=== PATIENT | female | born 1970 | race American Indian/Alaskan Native ===

== ENCOUNTER 2018-12-14 11:37 | Emergency (ER) | payer MEDICAID ==
[2018-12-14 11:51] VITALS: BP 118/75
--- NOTE | 2018-12-14 11:59 | Emergency Department Report ---
Chief Complaint: Chest Pain Stated Complaint: CHEST PAIN/HEADACHE Time Seen by Provider: 12/14/18 11:55 - HPI History of Present Illness: cp for 2 weeks no nausea/ diaphoresis tx at urgent care for stomach ulcer with antibiotics ambulatory non toxic no sob no fever Dr Urban pcp pmh dm htn hpld obese previous smoker lmp last week mom aw dad pancreatic ca rx norvasc metformin statin psh appy 4 y ago mse completed - Exam Vital Signs: Vital Signs 12/14/18 11:50 Temperature 98.1 F Pulse Rate 79 Respiratory 16 Rate Blood Pressure 118/75 [Right] O2 Sat by Pulse 96 Oximetry MSE screening note: Focused history and physical exam performed. Due to findings the following was ordered: ED Disposition for MSE Condition: Stable
[2018-12-14] MEDS ORDERED: PEPCID PO ONE (12:28)
[2018-12-14 12:41] LABS: Basophils # (Auto) 0.1 K/mm3 (0.0-0.1); Basophils % (Auto) 1.1 % (0.0-1.8); Eosinophils # (Auto) 0.2 K/mm3 (0.0-0.4); Eosinophils % (Auto) 3.4 % (0.0-4.3); Hematocrit 31.6 % (30.3-42.9); Hemoglobin 10.2 gm/dl (10.1-14.3); Lymphocytes # (Auto) 1.7 K/mm3 (1.2-5.4); Lymphocytes % (Auto) 30.5 % (13.4-35.0); Mean Corpuscular HGB Conc 32 % (30-34); Monocytes # (Auto) 0.5 K/mm3 (0.0-0.8); Monocytes % (Auto) 8.7 % (0.0-7.3); Platelet Count 287 K/mm3 (140-440); Red Blood Count 4.68 M/mm3 (3.65-5.03); Red Cell Distribution Width 18.2 % (13.2-15.2)
[2018-12-14 12:44] LABS: Mean Corpuscular Volume 68 fl (79-97)
[2018-12-14 12:48] LABS: Alanine Aminotransferase 16 units/L (7-56); Albumin 4.1 g/dL (3.9-5); BUN/Creatinine Ratio 13; Blood Urea Nitrogen 13 mg/dL (7-17); Calcium 9.1 mg/dL (8.4-10.2); Hemolysis Index 2
--- NOTE | 2018-12-14 13:51 | Ultrasound Report ---
ULTRASOUND ABDOMEN LIMITED INDICATION: Epigastric pain. COMPARISON: None similar at this institution. FINDINGS: Right upper quadrant sonography suggests mild diffuse hepatic echogenic coarsening. Grossly preserved hepatic contours without definite focal suspicious lesions or biliary dilatation. No gallstones or pericholecystic fluid. Gallbladder wall thickness is 2 mm. Common bile duct is 2 mm. Imaged pancreas, nonaneurysmal abdominal aorta, IVC and the right kidney appear within normal limits. CONCLUSION: Fatty liver suspected without acute right upper quadrant sonographic abnormality, as described. Thank you for the opportunity to participate in this patient's care.
--- NOTE | 2018-12-14 15:19 | Emergency Department Report ---
ED Abdominal Pain HPI - General Chief Complaint: Chest Pain Stated Complaint: CHEST PAIN/HEADACHE Time Seen by Provider: 12/14/18 11:55 Source: patient Mode of arrival: Ambulatory Limitations: No Limitations - History of Present Illness Initial Comments: Patient is a 48-year-old Palestinian female who is complaining of some center chest and epigastric discomfort that has been present for approximately 2 months. Patient taking omeprazole was given by GI doctor without relief. Patient states it occurs every 2-3 days and is very dependent on the sheets large meals or not. He states that occasionally belching will help relieve the pain. Patient state s when she does get the pain lasts for 1-2 hours sharp in nature and radiates to her back. The worst pain is 8 out of 10 in severity and she had some pain earlier today which prompted her to come to the emergency department. Patient has a past medical history diabetes hypertension hypercholesterolemia. Patient's past surgical history of appendectomy. Patient has a history of heavy drinking up until several months ago. Severity scale (0 -10): 8 - Related Data Previous Rx's Medication Instructions Recorded Last Taken Type HYDROcodone/ACETAMINOPHEN 1 each PO Q6HR PRN #12 tablet 12/14/18 Unknown Rx [Hydrocodone-Acetamin 5-325 mg] Ondansetron [Zofran Odt] 4 mg PO Q8HR #10 tab.rapdis 12/14/18 Unknown Rx Allergies Allergy/AdvReac Type Severity Reaction Status Date / Time Penicillins Allergy Rash Verified 12/14/18 12:33 ED Review of Systems ROS: Stated complaint: CHEST PAIN/HEADACHE Other details as noted in HPI Comment: All other systems reviewed and negative ED Past Medical Hx - Past Medical History Previous Medical History?: Yes Hx Hypertension: Yes Hx Diabetes: Yes Additional medical history: HYPERCHOLESTEROLEMIA - Surgical History Past Surgical History?: Yes Hx Appendectomy: Yes - Social History Smoking Status: Former Smoker - Medications Home Medications: Home Medications Medication Instructions Recorded Confirmed Last Taken Type HYDROcodone/ACETAMINOPHEN 1 each PO Q6HR PRN #12 tablet 12/14/18 Unknown Rx [Hydrocodone-Acetamin 5-325 mg] Ondansetron [Zofran Odt] 4 mg PO Q8HR #10 tab.rapdis 12/14/18 Unknown Rx ED Physical Exam - General Limitations: No Limitations General appearance: alert, in no apparent distress - Head Head exam: Present: atraumatic, normocephalic - Eye Eye exam: Present: normal appearance, PERRL, EOMI - ENT ENT exam: Present: mucous membranes moist - Neck Neck exam: Present: normal inspection - Respiratory Respiratory exam: Present: normal lung sounds bilaterally. Absent: respiratory distress, wheezes, rales, rhonchi, stridor - Cardiovascular Cardiovascular Exam: Present: regular rate, normal rhythm, normal heart sounds. Absent: systolic murmur, diastolic murmur, rubs, gallop - GI/Abdominal GI/Abdominal exam: Present: soft, tenderness (epigastric), normal bowel sounds. Absent: distended, guarding, rebound, rigid - Extremities Exam Extremities exam: Present: normal inspection - Back Exam Back exam: Present: normal inspection - Neurological Exam Neurological exam: Present: alert, oriented X3 - Psychiatric Psychiatric exam: Present: normal affect, normal mood - Skin Skin exam: Present: warm, dry, intact, normal color. Absent: rash ED Course Vital Signs 12/14/18 11:50 Temperature 98.1 F Pulse Rate 79 Respiratory 16 Rate Blood Pressure 118/75 [Right] O2 Sat by Pulse 96 Oximetry ED Medical Decision Making - Lab Data Result diagrams: 12/14/18 12:12 12/14/18 12:12 Lab Results 12/14/18 12/14/18 Range/Units 12:12 12:12 WBC 5.6 (4.5-11.0) K/mm3 RBC 4.68 (3.65-5.03) M/mm3 Hgb 10.2 (10.1-14.3) gm/dl Hct 31.6 (30.3-42.9) % MCV 68 L (79-97) fl MCH 22 L (28-32) pg MCHC 32 (30-34) % RDW 18.2 H (13.2-15.2) % Plt Count 287 (140-440) K/mm3 Lymph % (Auto) 30.5 (13.4-35.0) % [place] % (Auto) 8.7 H (0.0-7.3) % Eos % (Auto) 3.4 (0.0-4.3) % Baso % (Auto) 1.1 (0.0-1.8) % Lymph # 1.7 (1.2-5.4) K/mm3 [place] # 0.5 (0.0-0.8) K/mm3 Eos # 0.2 (0.0-0.4) K/mm3 Baso # 0.1 (0.0-0.1) K/mm3 Seg Neutrophils % 56.3 (40.0-70.0) % Seg Neutrophils # 3.1 (1.8-7.7) K/mm3 Sodium 134 L (137-145) mmol/L Potassium 3.8 (3.6-5.0) mmol/L Chloride 97.0 L (98-107) mmol/L Carbon Dioxide 25 (22-30) mmol/L Anion Gap 16 mmol/L BUN 13 (7-17) mg/dL Creatinine 1.0 (0.7-1.2) mg/dL Estimated GFR 59 ml/min BUN/Creatinine Ratio 13 % Glucose 135 H (65-100) mg/dL Calcium 9.1 (8.4-10.2) mg/dL Total Bilirubin 0.20 (0.1-1.2) mg/dL AST 18 (5-40) units/L ALT 16 (7-56) units/L Alkaline Phosphatase 56 (35-129) units/L Troponin T < 0.010 (0.00-0.029) ng/mL Total Protein 7.3 (6.3-8.2) g/dL Albumin 4.1 (3.9-5) g/dL Albumin/Globulin Ratio 1.3 % Lipase 66 H (13-60) units/L - EKG Data -: EKG Interpreted by Fl EKG shows normal: sinus rhythm, axis, intervals, QRS complexes, ST-T waves Rate: normal - EKG Data Interpretation: normal EKG - Radiology Data [facility] [address] [place] [address] Ultrasound Report Signed Patient: GARRY HAQUE MR#: [id number] : 1970 Acct:[id number] Age/Sex: 48 / F ADM Date: 12/14/18 Loc: ED Attending Dr: Ordering Physician: ARIELLE MACEDO MD Date of Service: 12/14/18 Procedure(s): US abdomen limited Accession Number(s): [id number] cc: ARIELLE MACEDO MD ULTRASOUND ABDOMEN LIMITED INDICATION: Epigastric pain. COMPARISON: None similar at this institution. FINDINGS: Right upper quadrant sonography suggests mild diffuse hepatic echogenic coarsening. Grossly preserved hepatic contours without definite focal suspicious lesions or biliary dilatation. No gallstones or pericholecystic fluid. Gallbladder wall thickness is 2 mm. Common bile duct is 2 mm. Imaged pancreas, nonaneurysmal abdominal aorta, IVC and the right kidney appear within normal limits. CONCLUSION: Fatty liver suspected without acute right upper quadrant sonographic abnormality, as described. Thank you for the opportunity to participate in this patient's care. Transcribed By: RS Dictated By: AVEL PONCE MD Electronically Authenticated By: AVEL PONCE MD Signed Date/Time: 12/14/18 135 DD/ 134 TD/TT: 12/14/18 135 - Medical Decision Making Patient has a mild pain secondary to pancreatitis. Pancreatitis likely secondary to her diabetes, hypercholesterolemia, and heavy drinking. Patient's symptoms are mild and she has no active nausea vomiting at this time. Patient be referred back to her gastric neurologist for further management. Critical care attestation.: If time is entered above; I have spent that time in minutes in the direct care of this critically ill patient, excluding procedure time. ED Disposition Clinical Impression: Pancreatitis Qualifiers: Chronicity: chronic Pancreatitis type: unspecified pancreatitis type Qualified Code(s): K86.1 - Other chronic pancreatitis Disposition: - TO HOME OR SELFCARE Is pt being admited?: No Does the pt Need Aspirin: No Condition: Stable Instructions: Pancreatitis (ED) Time of Disposition: 15:20
== END 2018-12-14 15:28 | disposition home or self-care (01) ==
LOC: ED 11:37
DX: K85.90 Acute pancreatitis without necrosis or infection, unspecified (principal); I10 Essential (primary) hypertension; E11.9 Type 2 diabetes mellitus without complications; Z90.49 Acquired absence of other specified parts of digestive tract; Z88.0 Allergy status to penicillin; Z87.891 Personal history of nicotine dependence
CPT/HCPCS: 36415; 76705; 80053; 83690; 84484; 85025; 93005; 93010; 99284

== ENCOUNTER 2019-05-06 12:48 | Emergency (ER) | payer MEDICAID ==
[2019-05-06 12:57] VITALS: BP 143/84
--- NOTE | 2019-05-06 12:59 | Event Note ---
ED Screening Note ED Screening Note: weak and fatigue 1 day no chills no n/v/d no cp or sob blood pmh dm htn hpld neuropathy gerd anemia- iron low rx metformin pepcid norvasc simvistatin omeprazole cymbalta no cig/etoh/drugs sister w heart disease lmp 8-19 heavy day 1-3 This initial assessment/diagnostic orders/clinical plan/treatment(s) is/are subject to change based on patients health status, clinical progression and re- assessment by fellow clinical providers in the ED. Further treatment and workup at subsequent clinical providers discretion. Patient/guardian urged not to elope from the ED as their condition may be serious if not clinically assessed and managed. Initial orders include: blood glucose bc weak/dm
[2019-05-06 13:24] LABS: Hematocrit 33.3 % (30.3-42.9); Hemoglobin 10.3 gm/dl (10.1-14.3); Mean Corpuscular HGB Conc 31 % (30-34); Platelet Count 378 K/mm3 (140-440); Red Blood Count 5.31 M/mm3 (3.65-5.03); Red Cell Distribution Width 17.5 % (13.2-15.2)
[2019-05-06 13:33] LABS: Mean Corpuscular Volume 63 fl (79-97)
[2019-05-06 13:42] LABS: BUN/Creatinine Ratio 13; Blood Urea Nitrogen 9 mg/dL (7-17); Calcium 9.6 mg/dL (8.4-10.2); Hemolysis Index 3
--- NOTE | 2019-05-06 14:56 | Emergency Department Report ---
ED General Adult HPI - General Chief complaint: Weakness Stated complaint: WEAK/IRON LOW Time Seen by Provider: 05/06/19 12:55 Source: patient Mode of arrival: Ambulatory Limitations: No Limitations - History of Present Illness Initial comments: Patient is 48 years old female with history of iron deficiency anemia. Patient presented to the ER complaining of 4 day history of generalized weakness. Patient stated that she think her iron is low. Patient is nontoxic and in no acute distress. Patient denied any chest pain, shortness of breath, lower e xtremity swelling. Patient also denied any fever or chills. - Related Data Previous Rx's Medication Instructions Recorded Last Taken Type HYDROcodone/ACETAMINOPHEN 1 each PO Q6HR PRN #12 tablet 12/14/18 Unknown Rx [Hydrocodone-Acetamin 5-325 mg] Ondansetron [Zofran Odt] 4 mg PO Q8HR #10 tab.rapdis 12/14/18 Unknown Rx Allergies Allergy/AdvReac Type Severity Reaction Status Date / Time Penicillins Allergy Rash Verified 12/14/18 12:33 ED Review of Systems ROS: Stated complaint: WEAK/IRON LOW Other details as noted in HPI Comment: All other systems reviewed and negative Constitutional: denies: chills, fever Respiratory: denies: cough, orthopnea, shortness of breath, SOB with exertion, wheezing Cardiovascular: denies: chest pain, palpitations Gastrointestinal: denies: abdominal pain, nausea, vomiting, diarrhea, constipation, hematemesis, melena, hematochezia Neurological: weakness (generalized). denies: headache, numbness, paresthesias, confusion, abnormal gait ED Past Medical Hx - Past Medical History Hx Hypertension: Yes Hx Diabetes: Yes Additional medical history: HYPERCHOLESTEROLEMIA, Anemia,NEUROPATHY - Surgical History Hx Appendectomy: Yes - Social History Smoking Status: Never Smoker Substance Use Type: None - Medications Home Medications: Home Medications Medication Instructions Recorded Confirmed Last Taken Type HYDROcodone/ACETAMINOPHEN 1 each PO Q6HR PRN #12 tablet 12/14/18 Unknown Rx [Hydrocodone-Acetamin 5-325 mg] Ondansetron [Zofran Odt] 4 mg PO Q8HR #10 tab.rapdis 12/14/18 Unknown Rx ED Physical Exam - General Limitations: No Limitations General appearance: alert, in no apparent distress - Head Head exam: Present: atraumatic, normocephalic, normal inspection - Eye Eye exam: Present: normal appearance, PERRL - ENT ENT exam: Present: normal exam, normal orophraynx, mucous membranes moist - Neck Neck exam: Present: normal inspection, full ROM. Absent: tenderness, meningismus, lymphadenopathy, thyromegaly - Respiratory Respiratory exam: Present: normal lung sounds bilaterally - Cardiovascular Cardiovascular Exam: Present: regular rate, normal rhythm, normal heart sounds - GI/Abdominal GI/Abdominal exam: Present: soft, normal bowel sounds. Absent: distended, tenderness, guarding, rebound, rigid, organomegaly, mass, bruit, pulsatile mass, hernia - Extremities Exam Extremities exam: Present: normal inspection, full ROM, normal capillary refill. Absent: tenderness, pedal edema, joint swelling, calf tenderness - Back Exam Back exam: Present: normal inspection, full ROM. Absent: CVA tenderness (R), CVA tenderness (L) - Neurological Exam Neurological exam: Present: alert, oriented X3, CN II-XII intact, normal gait, reflexes normal - Psychiatric Psychiatric exam: Present: normal mood - Skin Skin exam: Present: warm, intact, normal color ED Course Vital Signs 05/06/19 12:55 Temperature 97.5 F L Pulse Rate 76 Respiratory 18 Rate Blood Pressure 143/84 O2 Sat by Pulse 99 Oximetry ED Medical Decision Making - Lab Data Result diagrams: 05/06/19 13:07 05/06/19 13:07 - Medical Decision Making Patient is 48 years old female with history of iron deficiency anemia. Patient presented to the ER complaining of 4 day history of generalized weakness. Patient stated that she think her iron is low. Patient is nontoxic and in no acute distress. Patient denied any chest pain, shortness of breath, lower extremity swelling. Patient also denied any fever or chills. Patient EKG is unremarkable. Labs reviewed that is unremarkable. Hemoglobin is 10.3. Thyroid panel is normal. Patient advised to follow-up with her primary care physician in the next 2-3 days and to return to the ER if symptoms are not improved. Critical care attestation.: If time is entered above; I have spent that time in minutes in the direct care of this critically ill patient, excluding procedure time. ED Disposition Clinical Impression: Generalized weakness Disposition: DC-01 TO HOME OR SELFCARE Is pt being admited?: No Condition: Stable Instructions: Weakness (ED) Referrals: JAIDEN HANNA [Other] - 3-5 Days
[2019-05-06 15:06] LABS: Bacteria,Urine 1+ /HPF (Negative); Bilirubin,Urine NEG (Negative); Blood,Urine SM (Negative); Color,Urine Yellow (Yellow); Mucus,Urine FEW /HPF; Protein,Urine <15 mg/dL mg/dL (Negative); Urobilinogen,Urine < 2.0 mg/dL (<2.0)
[2019-05-06 15:37] LABS: Free T4 (Free Thyroxine) 0.99 ng/dL (0.76-1.46)
== END 2019-05-06 16:11 | disposition home or self-care (01) ==
LOC: ED 12:48
DX: D50.9 Iron deficiency anemia, unspecified (principal); I10 Essential (primary) hypertension; E11.40 Type 2 diabetes mellitus with diabetic neuropathy, unspecified; E78.5 Hyperlipidemia, unspecified; Z88.0 Allergy status to penicillin
CPT/HCPCS: 36415; 80048; 81001; 82962; 84439; 84443; 84484; 85027; 93005; 93010; 99283

== ENCOUNTER 2020-08-02 08:22 | Emergency (ER) | payer MEDICAID ==
[2020-08-02] MEDS ORDERED: ASPIRIN 325 MG TAB PO ONE (08:41)
--- NOTE | 2020-08-02 09:20 | XRay Report ---
CHEST 2 VIEWS INDICATION / CLINICAL INFORMATION: Chest Pain. COMPARISON: None available. FINDINGS: SUPPORT DEVICES: None. HEART / MEDIASTINUM: No significant abnormality. LUNGS / PLEURA: No significant pulmonary or pleural abnormality. No pneumothorax. ADDITIONAL FINDINGS: No significant additional findings. IMPRESSION: 1. No acute findings. Signer Name: Nixon Grant MD Signed: 08/02/2020 9:16 AM Workstation Name: [id number]
[2020-08-02 09:48] LABS: Basophils % (Auto) 0.8 % (0.0-1.8); Eosinophils # (Auto) 0.3 K/mm3 (0.0-0.4); Eosinophils % (Auto) 4.2 % (0.0-4.3); Lymphocytes # (Auto) 1.9 K/mm3 (1.2-5.4); Lymphocytes % (Auto) 31.2 % (13.4-35.0); Mean Corpuscular HGB Conc 30 % (30-34); Monocytes # (Auto) 0.6 K/mm3 (0.0-0.8); Monocytes % (Auto) 9.1 % (0.0-7.3); Platelet Count 328 K/mm3 (140-440); Red Blood Count 5.12 M/mm3 (3.65-5.03); Red Cell Distribution Width 19.6 % (13.2-15.2)
[2020-08-02 09:54] LABS: Hematocrit 30.1 % (30.3-42.9); Mean Corpuscular Volume 59 fl (79-97)
[2020-08-02 10:02] LABS: Blood Urea Nitrogen 10 mg/dL (7-17); Calcium 8.8 mg/dL (8.4-10.2); Hemolysis Index 0
[2020-08-02 10:04] LABS: BUN/Creatinine Ratio 14
[2020-08-02 10:31] VITALS: BP 148/86
[2020-08-02] MEDS ORDERED: predniSONE 20 MG TAB PO ONE (10:31)
[2020-08-02 10:38] LABS: Alanine Aminotransferase 18 units/L (7-56); Albumin 4.1 g/dL (3.9-5)
[2020-08-02] MEDS ORDERED: predniSONE 20 MG TAB ONE (10:38)
[2020-08-02 10:39] LABS: Bilirubin,Direct < 0.2 mg/dL (0-0.2)
--- NOTE | 2020-08-02 10:55 | Emergency Department Report ---
ED Chest Pain HPI - General Chief Complaint: Neck Pain/Injury Stated Complaint: CHEST/MID BACK PAIN Time Seen by Provider: 08/02/20 10:15 Source: patient Mode of arrival: Ambulatory Limitations: No Limitations - History of Present Illness Initial Comments: This is a 49-year-old female who admits to stress at home. She states that she has symptoms reminiscent of her "pancreatitis". She states that she was seen for this before. Reviewing the previous medical records on 12/2018 the patient was seen for abdominal pain. She was found to have a normal CT except for fatty liver. Her lipase was 66. The emergency physician diagnosed her with "chronic pancreatitis". Today the patient presents stating that she "slept wrong". She has very vague dull and intermittent chest back neck and left shoulder discomfort. There is tenderness in her trapezius area to movement. She is pain-free at the time of my encounter. He states that she may have been slightly nauseated this morning but this was not persistent and she did not vomit. He does not complain of radiating pain. He does not complain of respiratory symptoms to include shortness of breath or cough. Patient states that she sees Dr. Urban a local primary care provider. She states that both her mother and father had heart attacks. She denies any family history of thromboembolic disease. She states she has never had a stress test nor has that been mentioned to her. She states she has never seen a director of cardiology. The patient denies any recent alcohol consumption. She states that her pancreatitis was related to alcohol excess. MD Complaint: chest pain -: Gradual Onset: during rest Pain Location: other (As above) Pain Radiation: none Severity: mild Quality: dull Consistency: intermittent, now resolved Improves With: nothing Worsens With: movement (Neck symptoms increased with movement) re: nausea. denies: vomting, diaphoresis Other Symptoms: denies: cough, fever, syncope Treatments Prior to Arrival: none Aspirin use within the Past 7 Days: (0) No - Related Data Previous Rx's Medication Instructions Recorded Last Taken Type HYDROcodone/ACETAMINOPHEN 1 each PO Q6HR PRN #12 tablet 12/14/18 Unknown Rx [Hydrocodone-Acetamin 5-325 mg] Ondansetron [Zofran Odt] 4 mg PO Q8HR #10 tab.rapdis 12/14/18 Unknown Rx Magnesium Oxide 400 mg PO DAILY #30 tablet 08/02/20 Unknown Rx traMADoL [Ultram] 50 mg PO Q6HR PRN #10 tablet 08/02/20 Unknown Rx Allergies Allergy/AdvReac Type Severity Reaction Status Date / Time Penicillins Allergy Rash Verified 12/14/18 12:33 Heart Score - HEART Score History: Slightly suspicious EKG: Normal Age: 45-65 Risk factors: 1-2 risk factors Troponin: < normal limit HEART Score: 2 - Critical Actions Critical Actions: 0-3 pts:0.9-1.7%risk of adverse cardiac event.Candidate for discharge ED Review of Systems ROS: Stated complaint: CHEST/MID BACK PAIN Other details as noted in HPI Constitutional: denies: chills, fever Eyes: denies: eye pain, eye discharge, vision change ENT: denies: ear pain, throat pain Respiratory: denies: cough, shortness of breath, wheezing Cardiovascular: as per HPI, chest pain. denies: palpitations Endocrine: no symptoms reported Gastrointestinal: nausea. denies: abdominal pain, diarrhea Genitourinary: denies: urgency, dysuria, discharge Musculoskeletal: denies: back pain, joint swelling, arthralgia Skin: denies: rash, lesions Neurological: denies: headache, weakness, paresthesias Psychiatric: denies: anxiety, depression Hematological/Lymphatic: denies: easy bleeding, easy bruising ED Past Medical Hx - Past Medical History Previous Medical History?: Yes Hx Hypertension: Yes Hx Diabetes: Yes Additional medical history: HYPERCHOLESTEROLEMIA, Anemia,NEUROPATHY, Pancreatitis - Surgical History Past Surgical History?: Yes Hx Appendectomy: Yes - Social History Smoking Status: Never Smoker Substance Use Type: Prescribed - Medications Home Medications: Home Medications Medication Instructions Recorded Confirmed Last Taken Type HYDROcodone/ACETAMINOPHEN 1 each PO Q6HR PRN #12 tablet 12/14/18 Unknown Rx [Hydrocodone-Acetamin 5-325 mg] Ondansetron [Zofran Odt] 4 mg PO Q8HR #10 tab.rapdis 12/14/18 Unknown Rx Magnesium Oxide 400 mg PO DAILY #30 tablet 08/02/20 Unknown Rx traMADoL [Ultram] 50 mg PO Q6HR PRN #10 tablet 08/02/20 Unknown Rx ED Physical Exam - General Limitations: No Limitations General appearance: alert, in no apparent distress - Head Head exam: Present: atraumatic, normocephalic - Eye Eye exam: Present: normal appearance. Absent: scleral icterus - ENT ENT exam: Present: mucous membranes moist - Neck Neck exam: Present: normal inspection. Absent: meningismus - Respiratory Respiratory exam: Present: normal lung sounds bilaterally. Absent: respiratory distress - Cardiovascular Cardiovascular Exam: Present: regular rate, normal rhythm. Absent: systolic murmur, diastolic murmur, rubs, gallop - GI/Abdominal GI/Abdominal exam: Present: soft, normal bowel sounds. Absent: distended, tenderness, guarding, rebound - Extremities Exam Extremities exam: Present: normal inspection. Absent: pedal edema, joint swelling, calf tenderness - Back Exam Back exam: Present: normal inspection - Neurological Exam Neurological exam: Present: alert, oriented X3, CN II-XII intact. Absent: motor sensory deficit - Psychiatric Psychiatric exam: Present: normal affect, normal mood - Skin Skin exam: Present: warm, dry, intact, normal color. Absent: rash ED Course Vital Signs 08/02/20 08/02/20 08/02/20 08:38 09:33 10:00 Temperature 98.3 F Pulse Rate 80 Respiratory 18 Rate Blood Pressure 162/94 140/83 148/86 O2 Sat by Pulse 99 98 98 Oximetry - Reevaluation(s) Reevaluation #1: Patient is asymptomatic. She does admit to heavy periods and noncompliance with her iron. She states that she will restart that. She does not complain of chest pain. She does not complain of nausea or abdominal pain either. Her chest pain is atypical and possibly musculoskeletal. I see no indication for hospitalization for ACS. Her anemia is chronic and related to DU B. She states she has an appointment at [place] to decide what surgical procedure she needs thereof. 08/02/20 12:25 ED Medical Decision Making - Lab Data Result diagrams: 08/02/20 09:12 08/02/20 09:12 Laboratory Results - last 24 hr 08/02/20 08/02/20 08/02/20 09:12 09:12 09:12 WBC 6.2 RBC 5.12 H Hgb 9.0 L Hct 30.1 L MCV 59 L MCH 18 L MCHC 30 RDW 19.6 H Plt Count 328 Lymph % (Auto) 31.2 [place] % (Auto) 9.1 H Eos % (Auto) 4.2 Baso % (Auto) 0.8 Lymph # (Auto) 1.9 [place] # (Auto) 0.6 Eos # (Auto) 0.3 Baso # (Auto) 0.0 Seg Neutrophils % 54.7 Seg Neutrophils # 3.4 Sodium 138 Potassium 4.1 Chloride 102.4 Carbon Dioxide 25 Anion Gap 15 BUN 10 Creatinine 0.7 Estimated GFR > 60 BUN/Creatinine Ratio 14 Glucose 131 H Calcium 8.8 Magnesium 1.40 L Total Bilirubin 0.20 Direct Bilirubin < 0.2 AST 23 ALT 18 Alkaline Phosphatase 74 Troponin T < 0.010 Total Protein 7.5 Albumin 4.1 Albumin/Globulin Ratio 1.2 Lipase 53 - EKG Data -: EKG Interpreted by Me EKG shows normal: sinus rhythm, axis, intervals, QRS complexes, ST-T waves Rate: normal - EKG Data Interpretation: normal EKG - Radiology Data Radiology results: report reviewed (Chest x-ray no acute process), image reviewed Critical care attestation.: If time is entered above; I have spent that time in minutes in the direct care of this critically ill patient, excluding procedure time. ED Disposition Clinical Impression: Chest pain, atypical, Chronic anemia, Hypomagnesemia Disposition: DC- TO HOME OR SELFCARE Is pt being admited?: No Does the pt Need Aspirin: No Condition: Stable Instructions: Chest Pain (ED), Nonspecific Chest Pain, Adult, Chest Wall Pain, Hypomagnesemia Additional Instructions: Restart your iron tablets. Ultram if needed for pain. Magnesium oxide for your low magnesium. Follow-up with your primary care physician. Going to give you the name of a director of cardiology as well considering your family history. Return to the emergency department any recurrent symptoms or acute change. Prescriptions: Magnesium Oxide 400 mg PO DAILY #30 tablet traMADoL [Ultram] 50 mg PO Q6HR PRN #10 tablet PRN Reason: Pain Referrals: PRIMARY CARE, [Primary Care Provider] - 3-5 Days PARISH HERRERA MD [Staff Physician] - 2-3 Days Time of Disposition: 12:30
[2020-08-03] MEDS ORDERED: MAGNESIUM OXIDE 400 MG TAB PO ONE (11:02)
== END 2020-08-02 12:45 | disposition home or self-care (01) ==
LOC: ED 08:22
DX: E83.42 Hypomagnesemia (principal); R07.89 Other chest pain; D64.89 Other specified anemias; I10 Essential (primary) hypertension; E11.9 Type 2 diabetes mellitus without complications; E78.00 Pure hypercholesterolemia, unspecified; Z90.49 Acquired absence of other specified parts of digestive tract; Z79.899 Other long term (current) drug therapy; Z88.0 Allergy status to penicillin
CPT/HCPCS: 36415; 71046; 80048; 80076; 83690; 83735; 84484; 85025; 93005; J7512

== ENCOUNTER 2020-08-21 16:30 | Emergency (ER) | payer MEDICAID ==
--- NOTE | 2020-08-21 17:20 | Event Note ---
ED Screening Note Date of service: 08/21/20 Time: 17:17 ED Screening Note: 49-year-old -[place] female presents to the emergency room complaining of right flank and lower back pain with urinary frequency. She does admit to have a history of diabetes but her blood sugars have been good. Her last A1c was 6.5. Last menstrual period was 08/01/2020. She denies any hematuria. This initial assessment/diagnostic orders/clinical plan/treatment(s) is/are subject to change based on patients health status, clinical progression and re- assessment by fellow clinical providers in the ED. Further treatment and workup at subsequent clinical providers discretion. Patient/guardian urged not to elope from the ED as their condition may be serious if not clinically assessed and managed. Initial orders include:
[2020-08-21] MEDS ORDERED: SODIUM CHLORIDE 0.9% 1000 ML 1,000 ML IV ONE (21:20)
[2020-08-21] MEDS ORDERED: KETOROLAC 30 MG/1 ML INJ IV ONE (21:20)
--- NOTE | 2020-08-21 21:30 | Emergency Department Report ---
ED Abdominal Pain HPI - General Chief Complaint: Back Pain/Injury Stated Complaint: FLANK/CHEST PAIN PUI?: No Time Seen by Provider: 08/21/20 21:14 Source: patient Mode of arrival: Ambulatory Limitations: No Limitations - History of Present Illness Initial Comments: Patient is a 49-year-old female that presents emergency room with complaints of bilateral flank pain and lower back pain and urinary frequency x3 days. Patient states that her symptoms are intermittent. Patient states right now is a 2 out of 10. Patient states the pain is a pressure and aching pain. Patient states the pain is better with rest. Patient dates the pain is worse with movement and palpation. Patient states that her bilateral flank pain radiates to the lower part of her ribs and to the epigastrium. Patient states that she is urinating frequently and a small amount. Patient denies fever and chills. Patient denies chest pain or shortness of breath. Patient denies nausea vomiting. Patient denies diarrhea. Patient states that she called her primary for an appointment and her primary care gave her an appointment on 08 September. Patient states that she saw her primary care 1 month ago. Patient states she is a diabetic and she is on Metformin. Patient dates her last A1c was 6.5. Patient states that she was recently started on losartan for kidney protection. Patient denies recent travel. Patient denies recent international travel. Patient denies exposure to the novel coronavirus. Patient denies sick contacts. Patient denies fever and chills. Patient denies cough. Patient denies diarrhea. Patient denies coming in contact with anybody with symptoms of the novel coronavirus. MD Complaint: abdominal pain, flank pain -: Sudden Location: L flank, R flank Radiation: LUQ, RUQ, epigastric Migration to: no migration Severity scale (0 -10): 2 Quality: aching Consistency: intermittent Improves With: rest Worsens With: movement - Related Data Previous Rx's Medication Instructions Recorded Last Taken Type HYDROcodone/ACETAMINOPHEN 1 each PO Q6HR PRN #12 tablet 12/14/18 Unknown Rx [Hydrocodone-Acetamin 5-325 mg] Ondansetron [Zofran Odt] 4 mg PO Q8HR #10 tab.rapdis 12/14/18 Unknown Rx Magnesium Oxide 400 mg PO DAILY #30 tablet 08/02/20 Unknown Rx Metaxalone [Skelaxin] 800 mg PO TID PRN #20 tablet 08/22/20 Unknown Rx traMADoL [Ultram 50 MG tab] 50 mg PO Q6HR PRN #10 tablet 08/22/20 Unknown Rx Allergies Allergy/AdvReac Type Severity Reaction Status Date / Time Penicillins Allergy Rash Verified 12/14/18 12:33 ED Review of Systems ROS: Stated complaint: FLANK/CHEST PAIN Other details as noted in HPI Constitutional: denies: chills, fever Eyes: denies: eye pain, eye discharge, vision change ENT: denies: ear pain, throat pain Respiratory: denies: cough, shortness of breath, wheezing Cardiovascular: denies: chest pain, palpitations Endocrine: no symptoms reported Gastrointestinal: as per HPI, abdominal pain. denies: nausea, diarrhea Genitourinary: denies: urgency, dysuria, discharge Musculoskeletal: denies: back pain, joint swelling, arthralgia Skin: denies: rash, lesions Neurological: denies: headache, weakness, paresthesias Psychiatric: denies: anxiety, depression Hematological/Lymphatic: denies: easy bleeding, easy bruising ED Past Medical Hx - Past Medical History Previous Medical History?: Yes Hx Hypertension: Yes Hx Diabetes: Yes Additional medical history: HYPERCHOLESTEROLEMIA, Anemia,NEUROPATHY, Pancreatitis - Surgical History Past Surgical History?: Yes Hx Appendectomy: Yes - Family History Family history: no significant - Social History Smoking Status: Never Smoker Substance Use Type: Prescribed - Medications Home Medications: Home Medications Medication Instructions Recorded Confirmed Last Taken Type HYDROcodone/ACETAMINOPHEN 1 each PO Q6HR PRN #12 tablet 12/14/18 Unknown Rx [Hydrocodone-Acetamin 5-325 mg] Ondansetron [Zofran Odt] 4 mg PO Q8HR #10 tab.rapdis 12/14/18 Unknown Rx Magnesium Oxide 400 mg PO DAILY #30 tablet 08/02/20 Unknown Rx Metaxalone [Skelaxin] 800 mg PO TID PRN #20 tablet 08/22/20 Unknown Rx traMADoL [Ultram 50 MG tab] 50 mg PO Q6HR PRN #10 tablet 08/22/20 Unknown Rx ED Physical Exam - General Limitations: No Limitations General appearance: alert, in no apparent distress - Head Head exam: Present: atraumatic, normocephalic - Eye Eye exam: Present: normal appearance - ENT ENT exam: Present: mucous membranes moist - Neck Neck exam: Present: normal inspection - Respiratory Respiratory exam: Present: normal lung sounds bilaterally. Absent: respiratory distress - Cardiovascular Cardiovascular Exam: Present: regular rate, normal rhythm. Absent: systolic murmur, diastolic murmur, rubs, gallop - GI/Abdominal GI/Abdominal exam: Present: soft, tenderness (Bilateral flank tenderness and daksha ateral upper quadrant tenderness.), normal bowel sounds - Extremities Exam Extremities exam: Present: normal inspection - Back Exam Back exam: Present: normal inspection - Neurological Exam Neurological exam: Present: alert, oriented X3 - Psychiatric Psychiatric exam: Present: normal affect, normal mood - Skin Skin exam: Present: warm, dry, intact, normal color. Absent: rash ED Course Vital Signs 08/21/20 17:09 Temperature 98.6 F Pulse Rate 83 Respiratory 16 Rate Blood Pressure 133/75 [Right] O2 Sat by Pulse 100 Oximetry - Reevaluation(s) Reevaluation #1: I discussed all results and clinical findings with patient. I discussed plan of care with patient. Patient agrees with plan of care. Patient is stable for discharge. Patient will be discharged home. Patient given discharge instru ctions. Patient voiced understanding of discharge instructions. 08/22/20 00:18 ED Medical Decision Making - Lab Data Result diagrams: 08/21/20 21:31 08/21/20 21:31 - Radiology Data Radiology results: report reviewed CT ABDOMEN AND PELVIS WITH AND WITHOUT CONTRAST INDICATION: Abdominal pain. Bilateral flank pain. TECHNICAL: Multiple axial CT images of the abdomen and pelvis were acquired without intravenous contrast. Sagittal and coronal reformats were obtained. All CTs at this facility utilize dose reduction techniques including automated exposure control, iterative saman nstruction and weight based dosing when appropriate to reduce patient radiation dose to as low as r easonable achievable. COMPARISON: None. FINDINGS: Limited imaging of the bilateral lung bases demonstrates no acute abnormality. ABDOMEN: LIVER: No significant abnormality. GALLBLADDER: No significant abnormality. BILE DUCTS: No significant abnormality. PANCREAS: No significant abnormality. SPLEEN: No significant abnormality. ADRENALS: No significant abnormality. RIGHT KIDNEY / URETER: No significant abnormality. LEFT KIDNEY / URETER: No significant abnormality. STOMACH / SMALL BOWEL: No significant abnormality. COLON: No significant abnormality. APPENDIX: The appendix is not visualized. There may have been previous appendectomy. PERITONEUM: No free fluid. No free air. No fluid collection. AORTA / ARTERIES: No significant abnormality. IVC / VEINS: No significant abnormality. Pelvis: URINARY BLADDER: No significant abnormality. REPRODUCTIVE ORGANS: The uterus is markedly enlarged and diffusely heterogeneous measuring approximately 11.6 x 12.5 x 9.9 cm. ADDITIONAL FINDINGS: No additional acute abnormality. SKELETAL SYSTEM: No significant abnormality. IMPRESSION: 1. No evidence of acute inflammatory or obstructive process within the abdomen or pelvis. 2. Enlarged heterogeneous uterus most likely secondary to the presence of multiple fibroids. - Medical Decision Making Patient is a 49-year-old female that presents emergency room with complaints of bilateral flank pain and urinary frequency. Patient's bilateral flank. Radiates to the bilateral upper quadrants and epigastrium. Patient stated she has recently started working out. Patient had a CT scan of the abdomen which was negative for acute findings. Patient's had labs done which were unremarkable. Patient's UA was negative for an infection or abnormalities. Patient stable for discharge. Patient discharged home. - Differential Diagnosis Musculoskeletal, flank pain, kidney stone, UTI, gallbladder Critical care attestation.: If time is entered above; I have spent that time in minutes in the direct care of this critically ill patient, excluding procedure time. ED Disposition Clinical Impression: Bilateral flank pain, Thoracic sprain, Urinary frequency Abdominal pain Qualifiers: Abdominal location: upper abdomen, unspecified Qualified Code(s): R10.10 - Upper abdominal pain, unspecified Back pain Qualifiers: Back pain location: low back pain Chronicity: acute Back pain laterality: bilateral Sciatica presence: without sciatica Qualified Code(s): M54.5 - Low back pain Low back strain Qualifiers: Encounter type: initial encounter Qualified Code(s): S39.012A - Strain of muscle, fascia and tendon of lower back, initial encounter Disposition: - TO HOME OR SELFCARE Is pt being admited?: No Does the pt Need Aspirin: No Condition: Stable Instructions: Lumbar Sprain, Acute Back Pain, Adult, Thoracic Strain, Muscle Strain, [id number], Thoracic Strain, [id number], Flank Pain, Adult, [id number] Additional Instructions: Patient to follow-up with primary care in 2 to 3 days. Patient to follow-up with orthopedist in 2 to 3 days. Patient to follow-up with urologist in 2 to 3 days. Patient to rest. Patient to increase water. Patient to avoid strenuous exercise or heavy lifting until cleared by orthopedist. Patient to take Tylenol or ibuprofen as needed for pain. Patient to take meds as directed. Patient to return to the ER if condition worsens, changes or new symptoms arise. Prescriptions: Metaxalone [Skelaxin] 800 mg PO TID PRN #20 tablet PRN Reason: Muscle Spasm traMADoL [Ultram 50 MG tab] 50 mg PO Q6HR PRN #10 tablet PRN Reason: Pain Referrals: PRIMARY CARE, [Primary Care Provider] - 2-3 Days ANAI DAVIES MD [Staff Physician] - 2-3 Days Time of Disposition: 00:02
[2020-08-21 22:03] LABS: Basophils # (Auto) 0.1 K/mm3 (0.0-0.1); Basophils % (Auto) 0.9 % (0.0-1.8); Eosinophils # (Auto) 0.3 K/mm3 (0.0-0.4); Eosinophils % (Auto) 3.3 % (0.0-4.3); Lymphocytes # (Auto) 2.7 K/mm3 (1.2-5.4); Lymphocytes % (Auto) 30.3 % (13.4-35.0); Mean Corpuscular HGB Conc 30 % (30-34); Monocytes # (Auto) 0.6 K/mm3 (0.0-0.8); Monocytes % (Auto) 6.8 % (0.0-7.3); Platelet Count 378 K/mm3 (140-440); Red Blood Count 5.58 M/mm3 (3.65-5.03)
[2020-08-21 22:04] LABS: Hemoglobin 10.1 gm/dl (10.1-14.3); Mean Corpuscular Volume 61 fl (79-97); Red Cell Distribution Width 21.6 % (13.2-15.2)
[2020-08-21 22:10] LABS: Alanine Aminotransferase 18 units/L (7-56); Albumin 4.6 g/dL (3.9-5); BUN/Creatinine Ratio 11; Blood Urea Nitrogen 9 mg/dL (7-17); Calcium 9.6 mg/dL (8.4-10.2); Hemolysis Index 28
[2020-08-21 22:26] LABS: Bilirubin,Direct < 0.2 mg/dL (0-0.2)
--- NOTE | 2020-08-21 23:29 | Cat Scan Report ---
CT ABDOMEN AND PELVIS WITH AND WITHOUT CONTRAST INDICATION: Abdominal pain. Bilateral flank pain. TECHNICAL: Multiple axial CT images of the abdomen and pelvis were acquired without intravenous contr ast. Sagittal and coronal reformats were obtained. All CTs at this facility utilize dose reduction techniques including automated exposure control, iterative reconstruction and weight based dosing whe n appropriate to reduce patient radiation dose to as low as reasonable achievable. COMPARISON: None. FINDINGS: Limited imaging of the bilateral lung bases demonstrates no acute abnormality. ABDOMEN: LIVER: No significant abnormality. GALLBLADDER: No significant abnormality. BILE DUCTS: No significant abnormality. PANCREAS: No significant abnormality. SPLEEN: No significant abnormality. ADRENALS: No significant abnormality. RIGHT KIDNEY / URETER: No significant abnormality. LEFT KIDNEY / URETER: No significant abnormality. STOMACH / SMALL BOWEL: No significant abnormality. COLON: No significant abnormality. APPENDIX: The appendix is not visualized. There may have been previous appendectomy. PERITONEUM: No free fluid. No free air. No fluid collection. AORTA / ARTERIES: No significant abnormality. IVC / VEINS: No significant abnormality. Pelvis: URINARY BLADDER: No significant abnormality. REPRODUCTIVE ORGANS: The uterus is markedly enlarged and diffusely heterogeneous measuring approximat talisha 11.6 x 12.5 x 9.9 cm. ADDITIONAL FINDINGS: No additional acute abnormality. SKELETAL SYSTEM: No significant abnormality. IMPRESSION: 1. No evidence of acute inflammatory or obstructive process within the abdomen or pelvis. 2. Enlarged heterogeneous uterus most likely secondary to the presence of multiple fibroids. Signer Name: Mary Ziegler MD Signed: 08/21/2020 11:24 PM Workstation Name: [id number]
[2020-08-21 23:48] LABS: Bacteria,Urine 1+ /HPF (Negative); Bilirubin,Urine NEG (Negative); Blood,Urine NEG (Negative); Color,Urine Yellow (Yellow); Mucus,Urine FEW /HPF; Protein,Urine <15 mg/dL mg/dL (Negative); Urobilinogen,Urine < 2.0 mg/dL (<2.0)
[2020-08-22 03:25] VITALS: BP 130/80
== END 2020-08-22 00:24 | disposition home or self-care (01) ==
LOC: ED 16:30
DX: S39.012A Strain of muscle, fascia and tendon of lower back, initial encounter (principal); S23.3XXA Sprain of ligaments of thoracic spine, initial encounter; R35.0 Frequency of micturition; R10.31 Right lower quadrant pain; I10 Essential (primary) hypertension; E11.9 Type 2 diabetes mellitus without complications; Z90.49 Acquired absence of other specified parts of digestive tract; Z79.899 Other long term (current) drug therapy; Z88.0 Allergy status to penicillin; X58.XXXA Exposure to other specified factors, initial encounter; Y93.89 Activity, other specified; Y92.89 Other specified places as the place of occurrence of the external cause; Y99.8 Other external cause status
CPT/HCPCS: 36415; 74178; 80048; 80076; 81001; 83690; 84703; 85025; 96361; 96374; 99284; J1885; J7030; Q9967

== ENCOUNTER 2021-07-24 16:49 | Emergency (ER) | payer BC, MEDICAID ==
[2021-07-24 17:00] VITALS: BP 147/67
--- NOTE | 2021-07-24 18:18 | Emergency Department Report ---
ED Dizziness HPI - General Chief Complaint: Dizziness Stated Complaint: DIZZINESS, PAIN AROUND BACK Time Seen by Provider: 07/24/21 18:04 Source: patient Mode of arrival: Ambulatory Limitations: No Limitations - History of Present Illness Initial Comments: 50-year-old female, history of hypertension, diabetes, vertigo, hypercholesterolemia, GERD, presents to ED with complaint of dizziness. Patient ports onset 2 weeks ago. States it feels like the room is spinning. She also reports a frontal headache that is associated with it. She denies any fever, nausea, vomiting. Patient states that she has been taking meclizine intermittently, but not daily. States the vertigo has been off and on over the last 2 weeks. States the meclizine seems to help. Additionally, patient is reporting some epigastric chest pain that radiates around to the back. She reports that this is also been constant for 2 weeks. She reports history of pancreatitis in the past and is unsure if this pain that she is experiencing is possibly due to pancreatitis. Patient states she is alcohol occasionally. She denies any tobacco use. MD Complaint: dizziness -: week(s) (2) Timing: awoke with symptoms Description: "room spinning" History of Same: Yes History of Trauma: No Severity: moderate Improves With: remaining still Worsens With: movement Associated Symptoms: chest pain. denies: cough, fever/chills, shortness of breath, syncope, weakness - Related Data Previous Rx's Medication Instructions Recorded Last Taken Type HYDROcodone/ACETAMINOPHEN 1 each PO Q6HR PRN #12 tablet 12/14/18 Unknown Rx [Hydrocodone-Acetamin 5-325 mg] Ondansetron [Zofran Odt] 4 mg PO Q8HR #10 tab.rapdis 12/14/18 Unknown Rx Magnesium Oxide 400 mg PO DAILY #30 tablet 08/02/20 Unknown Rx Metaxalone [Skelaxin] 800 mg PO TID PRN #20 tablet 08/22/20 Unknown Rx traMADoL [Ultram 50 MG tab] 50 mg PO Q6HR PRN #10 tablet 08/22/20 Unknown Rx Butalb/Acetamin/Caff 50-325-40 1 tab PO Q6HR PRN #10 tab 07/24/21 Unknown Rx [Fioricet] Meclizine [Antivert] 25 mg PO TID PRN #20 tablet 07/24/21 Unknown Rx Naproxen [Naprosyn] 500 mg PO BID #20 tablet 07/24/21 Unknown Rx Allergies Allergy/AdvReac Type Severity Reaction Status Date / Time Penicillins Allergy Rash Verified 12/14/18 12:33 ED Review of Systems ROS: Stated complaint: DIZZINESS, PAIN AROUND BACK Other details as noted in HPI Comment: All other systems reviewed and negative Constitutional: denies: chills, fever Respiratory: denies: cough, shortness of breath Cardiovascular: chest pain Gastrointestinal: abdominal pain. denies: nausea, vomiting Musculoskeletal: back pain, other (Denies leg pain or swelling) Neurological: headache, vertigo. denies: weakness, numbness ED Past Medical Hx - Past Medical History Hx Hypertension: Yes Hx Diabetes: Yes Additional medical history: HYPERCHOLESTEROLEMIA, Anemia,NEUROPATHY, Pancreatitis - Surgical History Hx Appendectomy: Yes - Social History Smoking Status: Never Smoker Substance Use Type: Prescribed - Medications Home Medications: Home Medications Medication Instructions Recorded Confirmed Last Taken Type HYDROcodone/ACETAMINOPHEN 1 each PO Q6HR PRN #12 tablet 12/14/18 Unknown Rx [Hydrocodone-Acetamin 5-325 mg] Ondansetron [Zofran Odt] 4 mg PO Q8HR #10 tab.rapdis 12/14/18 Unknown Rx Magnesium Oxide 400 mg PO DAILY #30 tablet 08/02/20 Unknown Rx Metaxalone [Skelaxin] 800 mg PO TID PRN #20 tablet 08/22/20 Unknown Rx traMADoL [Ultram 50 MG tab] 50 mg PO Q6HR PRN #10 tablet 08/22/20 Unknown Rx Butalb/Acetamin/Caff 50-325-40 1 tab PO Q6HR PRN #10 tab 07/24/21 Unknown Rx [Fioricet] Meclizine [Antivert] 25 mg PO TID PRN #20 tablet 07/24/21 Unknown Rx Naproxen [Naprosyn] 500 mg PO BID #20 tablet 07/24/21 Unknown Rx ED Physical Exam - General Limitations: No Limitations General appearance: alert, in no apparent distress - Head Head exam: Present: atraumatic, normocephalic - Eye Eye exam: Present: normal appearance, PERRL, EOMI. Absent: nystagmus - ENT ENT exam: Present: mucous membranes moist - Neck Neck exam: Present: normal inspection, full ROM - Respiratory Respiratory exam: Present: normal lung sounds bilaterally. Absent: respiratory distress - Cardiovascular Cardiovascular Exam: Present: regular rate, normal rhythm - GI/Abdominal GI/Abdominal exam: Present: soft. Absent: distended, tenderness - Extremities Exam Extremities exam: Present: normal inspection - Back Exam Back exam: Present: paraspinal tenderness (Midthoracic area) - Neurological Exam Neurological exam: Present: alert, oriented X3, CN II-XII intact. Absent: motor sensory deficit - Psychiatric Psychiatric exam: Present: normal affect, normal mood - Skin Skin exam: Present: warm, dry, intact, normal color ED Course Vital Signs 07/24/21 16:59 Temperature 97.8 F Pulse Rate 83 Respiratory 16 Rate Blood Pressure 147/67 [Right] O2 Sat by Pulse 97 Oximetry ED Medical Decision Making - Lab Data Result diagrams: 07/24/21 18:10 07/24/21 18:10 - EKG Data -: EKG Interpreted by Hi EKG shows normal: sinus rhythm, axis, intervals, QRS complexes, ST-T waves Rate: normal - EKG Data Interpretation: no acute changes - Radiology Data Radiology results: report reviewed, image reviewed - Medical Decision Making 50-year-old female presents to ED with 2-week history of vertigo and chest pain. Patient states her vertigo feels the same as it did with previous episodes. Patient reports improvement in symptoms with meclizine, however patient not taking her meclizine daily. Patient states when she had vertigo previously it was also accompanied with a headache at that time as well. Patient also reporting some constant epigastric chest pain radiating to the back x2 weeks. EKG is unremarkable, troponin is negative. Chest x-ray is normal. Vital signs are normal. Patient will be discharged at this time. Outpatient follow-up advised, return precautions given. - Differential Diagnosis Vertigo, intracranial abnormality, pancreatitis, ACS, GERD Critical care attestation.: If time is entered above; I have spent that time in minutes in the direct care of this critically ill patient, excluding procedure time. ED Disposition Clinical Impression: Benign positional vertigo, Chest pain Disposition: HOME / SELF CARE / HOMELESS Is pt being admited?: No Condition: Stable Instructions: Vertigo, [id number], Nonspecific Chest Pain, Adult Prescriptions: Meclizine [Antivert] 25 mg PO TID PRN #20 tablet PRN Reason: Vertigo Butalb/Acetamin/Caff 50-325-40 [Fioricet] 1 tab PO Q6HR PRN #10 tab PRN Reason: Headache Naproxen [Naprosyn] 500 mg PO BID #20 tablet Referrals: PRIMARY CARE, [Primary Care Provider] - 3-5 Days [facility] [Provider Group] - 3-5 Days Time of Disposition: 19:44
[2021-07-24 18:25] LABS: Basophils # (Auto) 0.1 K/mm3 (0.0-0.1); Basophils % (Auto) 0.8 % (0.0-1.8); Eosinophils # (Auto) 0.1 K/mm3 (0.0-0.4); Lymphocytes # (Auto) 1.7 K/mm3 (1.2-5.4); Lymphocytes % (Auto) 23.6 % (13.4-35.0); Mean Corpuscular HGB Conc 30 % (30-34); Monocytes # (Auto) 0.4 K/mm3 (0.0-0.8); Monocytes % (Auto) 5.8 % (0.0-7.3); Platelet Count 385 K/mm3 (140-440); Red Blood Count 5.18 M/mm3 (3.65-5.03); Red Cell Distribution Width 18.8 % (13.2-15.2)
[2021-07-24 18:26] LABS: Hematocrit 31.5 % (30.3-42.9); Hemoglobin 9.5 gm/dl (10.1-14.3); Mean Corpuscular Volume 61 fl (79-97)
[2021-07-24 18:34] LABS: INR 0.88 (0.87-1.13)
[2021-07-24 18:35] LABS: Partial Thromboplastin Time 24.1 Sec. (24.2-36.6)
--- NOTE | 2021-07-24 18:35 | XRay Report ---
XR chest routine 2V INDICATION / CLINICAL INFORMATION: chest pain. COMPARISON: 07/13/2020 FINDINGS: SUPPORT DEVICES: None. HEART /PULMONARY VASCULATURE: No significant abnormality. LUNGS / PLEURA: No significant pulmonary or pleural abnormality. No pneumothorax. ADDITIONAL FINDINGS: No significant additional findings. IMPRESSION: 1. No acute findings. Signer Name: Kun Vogt MD Signed: 07/24/2021 6:30 PM Workstation Name: [id number]
[2021-07-24 18:59] LABS: Alanine Aminotransferase 15 units/L (7-56); Albumin 4.5 g/dL (3.9-5); Blood Urea Nitrogen 8 mg/dL (7-17); Calcium 8.6 mg/dL (8.4-10.2); Hemolysis Index 4
[2021-07-24 19:03] LABS: BUN/Creatinine Ratio 11
[2021-07-24] MEDS ORDERED: BUTALB/ACETAMINOPHEN/CAFFEINE TAB PO ONE (19:09)
[2021-07-24] MEDS ORDERED: MECLIZINE 25 MG TAB PO ONE (19:10)
--- NOTE | 2021-07-24 19:22 | Cat Scan Report ---
. 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 TECHNIQUE: Routine CT head without contrast. All CT scans at this location are performed using CT dos e reduction for ALARA by means of automated exposure control. COMPARISON: None. FINDINGS: BRAIN / INTRACRANIAL CONTENTS: No acute hemorrhage, mass effect, midline shift, hydrocephalus, or acu te, large territorial infarct. No signs of significant atrophy or chronic infarct. No significant whi te matter abnormality seen. CRANIOCERVICAL JUNCTION: No significant abnormality. ORBITS: No significant abnormality of visualized orbits. SINUSES / MASTOIDS: Visualized paranasal sinuses and mastoid air cells are essentially clear. ADDITIONAL FINDINGS: None. IMPRESSION: 1. No focal mass, hemorrhage, hydrocephalus, or acute, large territorial infarct. Signer Name: Nuno Gibson MD, III Signed: 07/24/2021 7:18 PM Workstation Name: [email or web address]
--- NOTE | 2021-07-27 11:19 | Electrocardiograph Report ---
[facility] Test Date: 2021-07-24 Test Time: 18:30:04 Pat Name: GARRY HAQUE Department: Room: Gender: F Manager Facility: [facility] : 1970 Requested By: MAR ARREOLA Order Number: [id number] Reading MD: Reba Cedeno Measurements Intervals [place] Rate: 74 P: 61 WI: 165 QRS: 52 QRSD: 68 T: 15 QT: 426 QTc: 474 Interpretive Statements Sinus rhythm Probable left atrial enlargement Compared to ECG 07/24/2021 17:23:20 No significant changes Electronically Signed On 07-27-2021 11:19:23 EST by Reba Cedeno
== END 2021-07-24 20:02 | disposition home or self-care (01) ==
LOC: ED 16:49
DX: H81.10 Benign paroxysmal vertigo, unspecified ear (principal); R07.9 Chest pain, unspecified; M54.9 Dorsalgia, unspecified; I10 Essential (primary) hypertension; E11.8 Type 2 diabetes mellitus with unspecified complications; E78.00 Pure hypercholesterolemia, unspecified; G62.9 Polyneuropathy, unspecified; Z98.890 Other specified postprocedural states; Z88.0 Allergy status to penicillin
CPT/HCPCS: 36415; 70450; 71046; 80053; 83690; 84484; 84703; 85025; 85379; 85610; 85730; 93005; 99284

== ENCOUNTER 2021-11-12 11:00 | Outpatient (CLI) | payer MEDICAID | END 2021-11-12 11:01 | disposition home or self-care (01) | LOC: SLR 11:00 | PROVIDERS: ATTEND Surgery | DX: G47.33 Obstructive sleep apnea (adult) (pediatric) (principal); R40.0 Somnolence; E66.9 Obesity, unspecified | CPT/HCPCS: G0399 ==

== ENCOUNTER 2022-05-09 07:14 | Observation (INO) | payer MEDICAID ==
--- NOTE | 2022-05-04 12:04 | Anesthesia Consultation ---
Anesthesia Consult and Med Hx Date of service: 05/09/22 - Airway Anesthetic Teeth Evaluation: Good ROM Head & Neck: Adequate Mental/Hyoid Distance: Adequate Mallampati Class: Class II Intubation Access Assessment: Good - Pulmonary Exam CTA: Yes - Cardiac Exam Cardiac Exam: No Murmur - Pre-Operative Health Status ASA Pre-Surgery Classification: ASA3 - Pulmonary Hx Smoking: Yes (STOPPED 1 YEAR AGO. STOPPED VAPING 1 MO. AGO.) Hx Asthma: No Hx Pneumonia: No Hx Sleep Apnea: Yes (Dx GERSON) - Cardiovascular System Hx Hypertension: Yes - Central Nervous System Hx Psychiatric Problems: Yes - Endocrine Hx Non-Insulin Dependent Diabetes: Yes - Hematic Hx Anemia: Yes Hx Sickle Cell Disease: No - Other Systems Hx Alcohol Use: No Hx Substance Use: No Hx Cancer: No Hx Obesity: Yes
[2022-05-04 12:12] LABS: Alanine Aminotransferase 32 units/L (7-56); Albumin 4.5 g/dL (3.9-5); BUN/Creatinine Ratio 21; Blood Urea Nitrogen 17 mg/dL (7-17); Calcium 9.5 mg/dL (8.4-10.2); Hemolysis Index 7
[2022-05-04 12:44] LABS: Hematocrit 38.8 % (30.3-42.9); Hemoglobin 11.9 gm/dl (10.1-14.3); Mean Corpuscular HGB Conc 31 % (30-34); Platelet Count 330 K/mm3 (140-440); Red Blood Count 5.87 M/mm3 (3.65-5.03)
[2022-05-04 13:23] LABS: Mean Corpuscular Volume 66 fl (79-97); Red Cell Distribution Width 20.3 % (13.2-15.2)
[~2022-05-09 07:14] MED LIST: ACETAMINOPHEN IV 1,000 MG/100 ML BOTTLE IV NR; ENOXAPARIN 40 MG/0.4 ML INJ SUB-Q NR; FAMOTIDINE 20 MG TAB PO NR; GABAPENTIN 500 MG/10 ML ORAL LIQD PO NR; MIDAZOLAM 2 MG/2 ML INJ IV NR; SCOPOLAMINE TRANSDERMAL PATCH 72 HR TD NR; methOCARBAMOL 1,000 MG in SODIUM CHLORIDE 0.9% 250ML 250 ML IV SCH; metroNIDAZOLE/NS 500 MG/100 ML 500 MG/100 ML BAG IV NR
[2022-05-09] MEDS: LACTATED RINGERS 1,000 ML IV SCH (09:00)
[2022-05-09] MEDS ORDERED: BUPIVACAINE/PF (0.25%) 2.5 MG/ML 30 ML VIAL INFILTRATI ONE ×3 (09:31→10:51)
[2022-05-09] MEDS ORDERED: LIDOCAINE 1%/EPINEPHRINE 1:100,000 VIAL (20 ML) INFILTRATI ONE ×2 (09:31→10:52)
[2022-05-09] MEDS ORDERED: dexAMETHasone 20 MG/5 ML VIAL ONE (09:36)
[2022-05-09] MEDS ORDERED: fentaNYL 100 MCG/2 ML INJ ONE (09:36)
[2022-05-09] MEDS ORDERED: ROCURONIUM 50 MG/5 ML INJ IV ONE ×2 (09:37→10:53)
[2022-05-09] MEDS ORDERED: propofoL 200 MG/20 ML VIAL IV ONE ×3 (09:37→12:17)
[2022-05-09] MEDS ORDERED: ONDANSETRON 4 MG/2 ML INJ ONE (09:37)
[2022-05-09] MEDS ORDERED: KETAMINE/STERILE WATER 50 MG/ML SYRINGE ONE (09:37)
[2022-05-09] MEDS ORDERED: MAGNESIUM SULFATE 4 GM/100 ML BAG IV ONE (09:46)
[2022-05-09] MEDS ORDERED: SUGAMMADEX SODIUM 200 MG/2 ML VIAL IV ONE (09:46)
[2022-05-09] MEDS ORDERED: LIDOCAINE MPF (2%) 20 MG/1 ML VIAL 5 ML ONE (09:47)
[2022-05-09] MEDS ORDERED: fentaNYL 100 MCG/2 ML INJ IV PRN (09:57)
--- NOTE | 2022-05-09 09:57 | Anesthesia Day of Surgery ---
Anesthesia Day of Surgery - Day of Surgery Patient Examined: Yes Patient H&P Reviewed: Yes Patient is NPO: Yes Cardiac Clearance: Yes Pulmonary Clearance: Yes
[2022-05-09] MEDS ORDERED: ONDANSETRON 4 MG/2 ML INJ IV PRN ×3 (10:00→13:41)
[2022-05-09] MEDS ORDERED: SCOPOLAMINE TRANSDERMAL PATCH 72 HR TD SCH (10:00)
[2022-05-09] MEDS ORDERED: WATER FOR IRRIG STERILE 1,500 ML BOTTLE IR ONE (10:52)
[2022-05-09] MEDS ORDERED: ePHEDrine SULFATE 50 MG/1 ML INJ ONE (11:09)
[2022-05-09] MEDS ORDERED: WATER FOR IRRIG STERILE 250 ML BOTTLE IR ONE (11:55)
[2022-05-09] MEDS ORDERED: LACTATED RINGERS 1,000 ML ONE (12:14)
[2022-05-09] MEDS ORDERED: INSULIN REGULAR, HUMAN 100 UNITS/1 ML IV ONE ×2 (13:10→14:27)
[2022-05-09] MEDS ORDERED: INSULIN REGULAR, HUMAN 100 UNITS/1 ML ONE (13:13)
[2022-05-09] MEDS ORDERED: ACETAMINOPEN W/CODEINE 120-12MG ORAL LIQD 5 ML PO PRN (13:35)
[2022-05-09] MEDS ORDERED: SIMETHICONE 80 MG CHEW TAB PO PRN (13:35)
[2022-05-09] MEDS ORDERED: HYDROmorphone 0.5 MG/0.5 ML INJ IV PRN ×3 (13:35→13:41)
[2022-05-09] MEDS ORDERED: METOCLOPRAMIDE 10 MG/2 ML INJ IV PRN (13:35)
[2022-05-09] MEDS ORDERED: hydrALAZINE 20 MG/1 ML INJ IV PRN (13:35)
[2022-05-09] MEDS ORDERED: MORPHINE 2 MG/1 ML INJ IV PRN (13:35)
[2022-05-09] MEDS ORDERED: HYDROmorphone 0.5 MG/0.5 ML INJ ONE (13:38)
[2022-05-09] MEDS: HYDROmorphone 0.5 MG/0.5 ML INJ IV PRN ×2 (13:44→17:50)
[2022-05-09] MEDS ORDERED: LACTATED RINGERS 1,000 ML IV SCH (13:45)
--- NOTE | 2022-05-09 13:50 | Operative Report ---
Operative Report Operative Report: DATE:05/09/2022 Surgeon: Mukund Patricia MD Laser Beam Trim Operator surgeon: Matteo Patel CSa MD Pre-op Dx: morbid obesity, hiatal hernia Post-op Dx: morbid obesity, hiatal hernia Procedure: 1. laparoscopic sleeve gastrectomy, 2. hiatal hernia repair Anesthesia: GETA and TAP block EBL: <10ml Specimen: gastric remnant Complication: none immediate Indication: 51 year old female with a history of morbid obesity, and htn . Pt is here for sleeve gastrectomy for weight loss to achieve healthier weight and improve or resolve his co-morbidities. she expressed understanding of the risks and benefits. PROCEDURE IN DETAIL: After consent was reviewed, patient was taken back to the operating room, where patient was placed supine on the bed with both arms out. The patient's legs were doubly strapped to the bed. Patient had a foot board in place. Patient had a body warmer placed by anesthesia. General anesthesia was induced with successful endotracheal intubation. Patient was then prepped and draped in normal sterile surgical fashion. After a time-out was called, I made a stab incision in the left subcostal area and placed a Veress needle through this incision and insufflated the abdomen to 18 mmHg pressure. I then counted down a handsbreadth below the xiphoid process in the midline and slightly left lateral injected local anesthetic and made about 1 cm transverse incision. I then used a 5-mm Optiview trocar to enter into the abdomen. There was no gross injury to any intra-abdominal structures. I then placed a 30-degree scope through this port and inspected the abdomen. I then placed a 8-mm port in the right upper quadrant, and 1 5mm in the epigastric area below the costovertebral angle. I then placed a 15-mm port about a handsbreadth in the right mid abdomen. After which a 5mm port was placed in left upper quadrant port along the anterior axillary line in a similar fashion. A liver retractor was placed to the epigastric port to elevate the left lateral lobe and liver. There was a moderate sized hiatal hernia appreciated (with 2-3cm of proximal stomach above the level of the diaphragm) that was accentuated with right and left crural dissection. The hiatal hernia sac was dissected from the left and right crura 360 degrees around releasing the stomach and esophagus until approximately 2 cm of esophagus was resting without tension inside the abdominal cavity. A Emir drain was placed at the GE junction to better facilitate visualization and dissection of the posterior crura. Using Surgidac suture, a posterior cruroplasty was performed.Hiatal hernia sac was dissected from the crura until the GE junction was resting about 2cm below the level of the diaphragm without tension. The anterior gastric fat pad was excised. Starting approximately 6 cm proximal to the pylorus, using a Enseal device the short gastrics were taken all the way to the left jayson. Once the lateral portion of the stomach was mobile anesthesia passed a 40 Bulgarian bougie along the medial aspect to act as a stent. Using serial firings of endoscopic stapler to gold, followed by 4 blue, the lateral portion of the stomach was transected making sure to did not close to the 2 cm to the incisura. All staple loads were supported with Ethicon buttress strips. The sleeve stomach was seen to be without kink obstruction or twisting. There was no significant bleeding appreciated except for a slight ooze at the most distal portion of the staple line. Bleeding was minimal and easily controlled with 2 hemocclips. An anterior crura-plasty was then performed to complete the closure of the hiatus. Vistaseal was then sprayed along the entirety of the staple line. The liver retractor was removed. A TAP block was performed with 60ml of 0.25% marcaine along bilateral mid axillary lines starting from the subcostal region to just below the level of the umbilicus This was after the gastric remnant was grasped and pulled into the 15 mm trocar site. The stomach was extracted via the 15 mm trocar site. After the fascia had to be stretched with a Roopa clamp to easily remove the stomach, the fascia was closed using a nohemy cathy device at the level of the fascia with an 0 PDS. trocars were removed under direct visualization. All skin incisions were closed with 4-0 Monocryl followed by Dermabond. Patient was awoken, extubated, and taken to recovery stable condition. All counts were correct.
[2022-05-09] MEDS ORDERED: KETOROLAC 30 MG/1 ML INJ IV SCH (14:00)
[2022-05-09] MEDS ORDERED: ACETAMINOPHEN IV 1,000 MG/100 ML BOTTLE IV SCH (14:00)
[2022-05-09] MEDS ORDERED: metroNIDAZOLE/NS 500 MG/100 ML 500 MG/100 ML BAG IV SCH (14:00)
[2022-05-09] MEDS: PANTOPRAZOLE 40 MG INJ IV SCH (14:17)
[2022-05-09] MEDS: ACETAMINOPHEN IV 1,000 MG/100 ML BOTTLE IV SCH ×2 (15:02→20:52)
--- NOTE | 2022-05-09 16:35 | Post Anesthesia Evaluation ---
- Post Anesthesia Evaluation Patient Participated: Yes Airway Patent: Yes Stable Respiratory Function: Yes Nausea/Vomiting: No Temp > 96.8F: Yes Pain Manageable: Yes Adequeate Hydration: Yes Anesthesia Complications: No
[2022-05-09] MEDS ORDERED: INSULIN REGULAR, HUMAN 100 UNITS/1 ML SUB-Q ONE (18:38)
[2022-05-09] MEDS: KETOROLAC 30 MG/1 ML INJ IV SCH ×2 (18:54→23:58)
[2022-05-09] MEDS: metroNIDAZOLE/NS 500 MG/100 ML 500 MG/100 ML BAG IV SCH (19:02)
[2022-05-09] MEDS ORDERED: DEXTROSE 50% IN WATER (25GM) 50 ML SYRINGE IV PRN (19:17)
[2022-05-09] MEDS: INSULIN LISPRO 100 UNIT/ML SUB-Q SCH (22:06)
[2022-05-10] MEDS: ACETAMINOPHEN IV 1,000 MG/100 ML BOTTLE IV SCH ×2 (02:53→08:43)
[2022-05-10] MEDS: metroNIDAZOLE/NS 500 MG/100 ML 500 MG/100 ML BAG IV SCH ×2 (02:57→11:07)
[2022-05-10] MEDS: LACTATED RINGERS 1,000 ML IV SCH (03:04)
[2022-05-10] MEDS: KETOROLAC 30 MG/1 ML INJ IV SCH ×3 (05:53→18:33)
[2022-05-10] MEDS: INSULIN LISPRO 100 UNIT/ML SUB-Q SCH ×4 (08:43→21:25)
[2022-05-10 08:52] LABS: Basophils % (Auto) 0.1 % (0.0-1.8); Eosinophils % (Auto) 0.2 % (0.0-4.3); Hematocrit 34.7 % (30.3-42.9); Hemoglobin 11.1 gm/dl (10.1-14.3); Lymphocytes # (Auto) 0.8 K/mm3 (1.2-5.4); Lymphocytes % (Auto) 8.8 % (13.4-35.0); Mean Corpuscular HGB Conc 32 % (30-34); Monocytes # (Auto) 0.5 K/mm3 (0.0-0.8); Monocytes % (Auto) 5.4 % (0.0-7.3); Platelet Count 325 K/mm3 (140-440); Red Blood Count 5.33 M/mm3 (3.65-5.03)
[2022-05-10 08:55] LABS: Mean Corpuscular Volume 65 fl (79-97); Red Cell Distribution Width 20.2 % (13.2-15.2)
[2022-05-10 09:16] LABS: Alanine Aminotransferase 42 units/L (7-56); Albumin 4.5 g/dL (3.9-5); BUN/Creatinine Ratio 9; Blood Urea Nitrogen 7 mg/dL (7-17); Calcium 9.4 mg/dL (8.4-10.2); Hemolysis Index 0
[2022-05-10] MEDS: LOSARTAN 25 MG TAB PO SCH (09:16)
[2022-05-10] MEDS: amLODIPine 10 MG TAB PO SCH (09:16)
[2022-05-10] MEDS: ENOXAPARIN 40 MG/0.4 ML INJ SUB-Q SCH (09:19)
[2022-05-10] MEDS: PANTOPRAZOLE 40 MG INJ IV SCH (09:19)
--- NOTE | 2022-05-10 15:14 | Post Anesthesia Evaluation ---
- Post Anesthesia Evaluation Patient Participated: Yes Airway Patent: Yes Stable Respiratory Function: Yes Nausea/Vomiting: No Temp > 96.8F: Yes Pain Manageable: Yes Adequeate Hydration: Yes Anesthesia Complications: No Block Receding Appropriately: Not Applicable Patient on Ventilator: No
--- NOTE | 2022-05-10 17:02 | Progress Note ---
Assessment and Plan Postop day #1 status post lap gastric sleeve with hiatal hernia repair. Afebrile and stable with suboptimal oral intake. Patient encouraged to increase oral intake. If that improves and she remained stable will discharge tomorrow. Subjective Date of service: 05/10/22 Narrative: No acute events overnight. Patient says that pain is controlled however she is only able to drink a little bit at a time and has not met her fluid intake over the day. She denies any nausea vomiting. She is ambulating independently. Objective Vital Signs - 12hr 05/10/22 05/10/22 05/10/22 07:27 08:00 10:00 Temperature 98.3 F Pulse Rate 79 84 Respiratory 17 Rate Blood Pressure 146/68 O2 Sat by Pulse 96 97 Oximetry 05/10/22 05/10/22 05/10/22 11:27 11:49 11:51 Temperature 98.1 F 98.5 F Pulse Rate 73 76 Respiratory 18 18 18 Rate Blood Pressure 138/86 137/82 O2 Sat by Pulse 96 100 100 Oximetry - General physical appearance well developed, no distress, no pain - Eyes PERRL - Respiratory normal expansion, normal respiratory effort - Abdomen soft, other (Incisions clean dry and intact, appropriate tender palpation) - Labs 05/10/22 07:22 05/10/22 07:22 Diabetes panel 05/10/22 Range/Units 07:22 Sodium 138 (137-145) mmol/L Potassium 4.8 (3.6-5.0) mmol/L Chloride 101.7 (98-107) mmol/L Carbon Dioxide 23 (22-30) mmol/L BUN 7 (7-17) mg/dL Creatinine 0.8 (0.6-1.2) mg/dL Glucose 196 H (65-100) mg/dL Calcium 9.4 (8.4-10.2) mg/dL AST 33 (5-40) units/L ALT 42 (7-56) units/L Alkaline Phosphatase 99 (35-129) units/L Total Protein 7.1 (6.3-8.2) g/dL Albumin 4.5 (3.9-5) g/dL Calcium panel 05/10/22 Range/Units 07:22 Calcium 9.4 (8.4-10.2) mg/dL Albumin 4.5 (3.9-5) g/dL Pituitary panel 05/10/22 Range/Units 07:22 Sodium 138 (137-145) mmol/L Potassium 4.8 (3.6-5.0) mmol/L Chloride 101.7 (98-107) mmol/L Carbon Dioxide 23 (22-30) mmol/L BUN 7 (7-17) mg/dL Creatinine 0.8 (0.6-1.2) mg/dL Glucose 196 H (65-100) mg/dL Calcium 9.4 (8.4-10.2) mg/dL Adrenal panel 05/10/22 Range/Units 07:22 Sodium 138 (137-145) mmol/L Potassium 4.8 (3.6-5.0) mmol/L Chloride 101.7 (98-107) mmol/L Carbon Dioxide 23 (22-30) mmol/L BUN 7 (7-17) mg/dL Creatinine 0.8 (0.6-1.2) mg/dL Glucose 196 H (65-100) mg/dL Calcium 9.4 (8.4-10.2) mg/dL Total Bilirubin 0.30 (0.1-1.2) mg/dL AST 33 (5-40) units/L ALT 42 (7-56) units/L Alkaline Phosphatase 99 (35-129) units/L Total Protein 7.1 (6.3-8.2) g/dL Albumin 4.5 (3.9-5) g/dL
[2022-05-11] MEDS: KETOROLAC 30 MG/1 ML INJ IV SCH ×2 (00:40→06:11)
[2022-05-11 08:51] LABS: Basophils % (Auto) 0.6 % (0.0-1.8); Eosinophils % (Auto) 0.4 % (0.0-4.3); Hemoglobin 10.7 gm/dl (10.1-14.3); Lymphocytes # (Auto) 2.6 K/mm3 (1.2-5.4); Lymphocytes % (Auto) 38.9 % (13.4-35.0); Mean Corpuscular HGB Conc 32 % (30-34); Monocytes # (Auto) 0.4 K/mm3 (0.0-0.8); Monocytes % (Auto) 6.4 % (0.0-7.3); Platelet Count 299 K/mm3 (140-440); Red Blood Count 5.21 M/mm3 (3.65-5.03)
[2022-05-11 08:55] LABS: Mean Corpuscular Volume 65 fl (79-97); Red Cell Distribution Width 20.1 % (13.2-15.2)
[2022-05-11 09:03] VITALS: BP 95/54
[2022-05-11 09:58] LABS: Alanine Aminotransferase 30 units/L (7-56); Albumin 4.4 g/dL (3.9-5); BUN/Creatinine Ratio 11; Blood Urea Nitrogen 9 mg/dL (7-17); Hemolysis Index 0
[2022-05-11] MEDS: PANTOPRAZOLE 40 MG INJ IV SCH (10:19)
[2022-05-11] MEDS: LOSARTAN 25 MG TAB PO SCH (10:19)
[2022-05-11] MEDS: amLODIPine 10 MG TAB PO SCH (10:19)
[2022-05-11] MEDS: ENOXAPARIN 40 MG/0.4 ML INJ SUB-Q SCH (10:20)
[2022-05-11] MEDS: INSULIN LISPRO 100 UNIT/ML SUB-Q SCH (10:50)
--- NOTE | 2022-05-11 15:40 | Discharge Summary ---
Providers - Providers Date of Admission: 05/09/22 07:15 Date of discharge: 05/11/22 Attending physician: BELTRAN FUNEZ MD 05/09/22 13:35 Physical Therapy Evaluation and Treat [CONS] Routine Comment: Reason For Exam: s/p bariatric surgery Hospitalization Reason for admission: Status post bariatric surgery Condition: Good Procedures: lap gastric sleeve with hiatal hernia repair Hospital course: Patient had an uneventful laparoscopic gastric sleeve with hiatal hernia repair for treatment of morbid obesity. Patient was slow to get enough oral intake to be discharged on postoperative day 1. By postoperative day 2 she was tolerating oral liquids easily getting at least 30 ounces on her own. She remained afebrile and stable with acceptable vital signs laboratory values. She was discharged on postoperative day #2 showing no gross clinical signs of leak or bleeding. Patient will follow-up in the office in 2 weeks. Disposition: 01 HOME / SELF CARE / HOMELESS Final Discharge Diagnosis (Prints w/discharge instructions): morbid obesity, diabetes, htn Core Measure Documentation - Palliative Care Palliative Care/ Comfort Measures: Not Applicable - Core Measures Any of the following diagnoses?: none Exam - Constitutional Vitals: Temp Pulse Resp BP Pulse Ox 98.8 F 72 16 95/54 96 05/11/22 08:59 05/11/22 08:59 05/11/22 08:59 05/11/22 08:59 05/11/22 08:59 General appearance: Present: no acute distress, well-nourished, obese - EENT Eyes: Present: PERRL - Respiratory Respiratory effort: normal - Cardiovascular Heart Sounds: Present: S1 & S2 - Extremities Extremities: no ischemia - Abdominal General gastrointestinal: Present: soft, non-tender - Integumentary Integumentary: Present: clear, warm, dry - Musculoskeletal Musculoskeletal: strength equal bilaterally Plan Activity: advance as tolerated Diet: clear liquids Wound: open to air, keep clean and dry Follow up with: KARYNA MCCALL [Other] - 7 Days
== END 2022-05-11 10:50 | disposition home or self-care (01) ==
LOC: OR 07:14 → INTOOBSV 07:15 → 4A 07:15 → EDSTATUS 08:00 → 4A 17:42
PROVIDERS: ADMIT Surgery; ATTEND Surgery
DX: E66.01 Morbid (severe) obesity due to excess calories (principal); Z20.822 Contact with and (suspected) exposure to COVID-19; K44.9 Diaphragmatic hernia without obstruction or gangrene; I10 Essential (primary) hypertension; E11.9 Type 2 diabetes mellitus without complications; K21.9 Gastro-esophageal reflux disease without esophagitis; G47.30 Sleep apnea, unspecified; E78.00 Pure hypercholesterolemia, unspecified; Z79.84 Long term (current) use of oral hypoglycemic drugs; Z79.899 Other long term (current) drug therapy; Z98.890 Other specified postprocedural states; Z68.39 Body mass index [BMI] 39.0-39.9, adult
CPT/HCPCS: 36415; 43775; 80053; 82962; 83036; 84703; 85025; 85027; 88307; 88342; 94760; 96365; 96366; 96367; 96372; 96376; 97162; C9113; G0378; G0379; J0131; J1100; J1170; J1650; J1885; J1956; J2250; J2704; J2800; J3475; J3490; J7050; J7120; J7517; U0003; J7121; Q9967; J1815; J2405; J3010